=== PATIENT | female | born 1960 | race Two or more races ===

== ENCOUNTER 2018-07-12 14:07 | Outpatient (CLI) | payer OTHER | END 2018-07-12 14:23 | disposition home or self-care (01) | LOC: RAD 14:07 → MAMO-SONO 14:15 → RAD 14:15 | DX: E04.2 Nontoxic multinodular goiter (principal); M15.0 Primary generalized (osteo)arthritis; N63.20 Unspecified lump in the left breast, unspecified quadrant; Z12.31 Encounter for screening mammogram for malignant neoplasm of breast ==